=== PATIENT | female | born 1965 | race Caucasian/White ===

== ENCOUNTER → 2016-04-18 | Outpatient (CLI) | payer OTHER ==
[2015-03-07 12:57] VITALS: BP 129/60
[~2016-04-18] MED LIST: ACET-704 PO; ALPR1TAB2 PO; BISA5TAB76 PO; CHOL100013 PO; DIVA500T2 PO; DIVA500T9 PO; DOCU-27 PO; ESTR26GE TP; ESTR42.53 VG; HYDR-971 PO; MULT1TAB52 PO; NAPR500T PO; PRAS25CA6 PO; PROG100C7 PO
--- NOTE | 2016-04-18 17:11 | KCIC ---
PROCEDURE Acute abdominal series to include a PA chest radiograph 04/18/2016 HISTORY Right upper quadrant abdominal pain for 6-8 months with nausea and vomiting. FINDINGS A PA digital radiograph of the chest was obtained. Two AP supine and an AP erect digital radiographs of the abdomen/pelvis were obtained. Comparison is made to a CT scan of the abdomen and pelvis dated 08/03/2015. The cardiac silhouette is normal in size. The thoracic aorta is tortuous. Atherosclerotic calcification of the thoracic aorta is seen. No acute pulmonary infiltrate is noted. No pneumothorax or pleural effusion is seen. The abdominal bowel gas pattern is nonobstructive. There is no evidence of free air. No radiopaque calculus is seen. Calcifications are seen within the pelvis consistent with phleboliths. Degenerative changes are seen involving the lower lumbar spine. IMPRESSION Nonobstructive bowel gas pattern. Electronically signed by: Anastacio Pascual MD (Apr 18, 2016 17:09:43)
== END | disposition home or self-care (01) ==
LOC: KCIC 12:49
PROVIDERS: ATTEND Family Medicine
DX: R10.84 Generalized abdominal pain (principal)
CPT/HCPCS: 74022

== ENCOUNTER → 2016-05-01 | Outpatient (CLI) | payer OTHER ==
[2015-03-07 12:57] VITALS: BP 129/60
--- NOTE | 2016-05-01 11:10 | KCIC ---
PROCEDURE Complete abdominal ultrasound. HISTORY Right upper quadrant abdominal pain. TECHNIQUE Real-time ultrasound imaging of the abdomen is performed. COMPARISON CT abdomen and pelvis with and without contrast August 03, 2015. FINDINGS The liver is homogeneous in appearance. The pancreas is homogeneous in appearance and no focal enlargement is seen. The gallbladder appears normal and no gallstones or gallbladder wall thickening is seen. No pericholecystic fluid is seen. No positive Lopez's sign was elicited during transducer examination of the gallbladder. No extrahepatic biliary ductal dilatation is seen and the extrahepatic bile duct measures 3 mm. The right kidney measures 11.1 cm in length and no hydronephrosis or renal mass or perinephric fluid collection is seen. There is an exophytic cyst in the upper pole measuring up to 4.9 cm. The left kidney measures 11.7 cm in length and no hydronephrosis or renal mass or perinephric fluid collection is seen. There is a cyst in the upper pole measuring up to 2.3 cm. The spleen measures 9.2 cm in length and is homogeneous in appearance. No focal aneurysmal dilatation of the abdominal aorta is seen. The IVC is unremarkable. No ascites is seen. IMPRESSION 1. Bilateral renal cysts. 2. No evidence of gallbladder disease. Electronically signed by: Deon Reid MD (May 01, 2016 11:08:35)
== END | disposition home or self-care (01) ==
LOC: KCIC US 09:02
PROVIDERS: ATTEND Family Medicine
DX: N28.1 Cyst of kidney, acquired (principal)
CPT/HCPCS: 76700

== ENCOUNTER → 2018-02-03 | Outpatient (CLI) | payer OTHER ==
[2015-03-07 12:57] VITALS: BP 129/60
[~2018-02-03] MED LIST changes: +DIVA-53 PO; -DIVA500T9 PO; +DOCU-109 PO; -DOCU-27 PO; +NAPR-683 PO; -NAPR500T PO; +PROG100C15 PO; -PROG100C7 PO
[2018-02-03 15:21] LABS: BARBITURATES NEG (NEG); BENZODIAZEPINES NEG (NEG); CANNABINOIDS NEG (NEG); COCAINE NEG (NEG); METHADONE NEG (NEG); OPIATES POS (NEG); PHENCYCLIDINE NEG (NEG)
[2018-02-03 15:22] LABS: AMPHETAMINE/METHAMPHETAMINE NEG (NEG)
== END | disposition home or self-care (01) ==
LOC: LAB 14:56
PROVIDERS: ATTEND Psychiatry & Neurology Neurology with Special Qualifications in Child Neurology
DX: Z79.891 Long term (current) use of opiate analgesic (principal)
CPT/HCPCS: 80307; G0479